=== PATIENT | female | born 1935 ===

== ENCOUNTER 2018-04-28 08:09 | Outpatient (CLI) | payer OTHER ==
[~2018-04-28] VITALS: Ht 152.4 cm; Wt 51.7 kg
[2018-04-28] MEDS ORDERED: LIPO-FLAVONOID1 EACH PO (10:51)
== END 2018-04-28 08:35 | disposition home or self-care (01) ==
LOC: OFIC 805 08:09
DX: H93.13 Tinnitus, bilateral (principal); R42 Dizziness and giddiness

== ENCOUNTER 2018-10-13 07:47 | Outpatient (CLI) | payer OTHER ==
[~2018-10-13] VITALS: Ht 152.4 cm; Wt 51.7 kg
[~2018-10-13 07:47] MED LIST: LIPO-FLAVONOID1 EACH PO
== END 2018-10-13 08:00 | disposition home or self-care (01) ==
LOC: OFIC 805 07:47
DX: R42 Dizziness and giddiness (principal)